=== PATIENT | female | born 1980 | race Caucasian/White ===

== ENCOUNTER → 2016-07-12 | Emergency (ER) | payer MEDICAID ==
[~2016-07-12] MED LIST: BACTRIM DS TAB1 EAC1 ORAL; BACTRIM-DS1 EA ORAL; CEPHALEXIN500 MG ORAL; GLIPIZIDE5 MG ORAL; HYDROCODON-ACE1 EA15 ORAL; IBUPROFEN400 MG ORAL
--- NOTE | 2016-07-13 03:50 | Emergency Room Report ---
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 Jul 13, 2016 03:50
== END | disposition left against medical advice (07) ==
LOC: EMR 22:33
DX: Z53.21 Procedure and treatment not carried out due to patient leaving prior to being seen by health care provider (principal)